=== PATIENT | female | born 1960 | race Caucasian/White ===

== ENCOUNTER 2023-12-11 09:53 | Emergency (ER) | payer MEDICARE, OTHER, SELFPAY ==
[2023-12-11 10:05] VITALS: BP 155/86
--- NOTE | 2023-12-11 10:33 | ED.GENMED ---
History of Present Illness
General
Chief Complaint: Extremity Pain (non-traumatic)
Source: patient
Exam Limitations: none
Time Seen by Provider: 12/11/23 10:26
History of Present Illness
History of Present Illness:
Patient was awoken this morning by sudden pain behind her right knee. She points to her distal posterior thigh right above the popliteal area. She felt there was a knot there for a while. Pain has significantly improved. No calf pain. No chest
pain or shortness of breath. No fever. She had a total knee replacement done 4 weeks ago without issues.
Past History
Past History
ED Past Medical History: HTN, Hypercholesterolemia and NIDDM
ED Past Surgical History: Appendectomy, Cholecystectomy, Gynecological and Orthopedic
Review of Systems
Review of Systems
All Other Systems: Not applicable
Constitutional: Denies fever or chills
Respiratory: Reports no symptoms
Cardiac: Reports no symptoms
Phy Exam
Physical Exam
Physical Exam:
GENERAL: Alert and oriented in no apparent distress
EYE: Orbits normal.
CARDIAC: Regular rate and rhythm without any obvious murmurs.
LUNGS: Clear breath sounds,normal
NEUROLOGICAL: Alert and oriented , grossly non-focal
SKIN: Warm and dry, no rash or lesion, no discoloration, skin intact.
MUSCULOSKELETAL: No edema,no deformity.Good color. Well-healing vertical incision right knee. No calf tenderness. No cord. Good distal pulses and color. Mild tenderness right posterior thigh at the distal tendon. No thigh swelling.
PSYCH: Normal and appropriate interaction.
Course
Orders/Labs/Results
Orders:
Orders
12/11/23 10:31
Knee, Right 4 or More Views [CR Knee- Right 4 Or More View*] Urgent
Comment:
Reason For Exam: Right knee pain. Recent total knee replacement
US Periph Venous LOWER Ext RT Urgent
Comment:
Reason For Exam: Right posterior knee pain
12/11/23 10:47
Basic Metabolic Panel Urgent
Complete Blood Count/With Diff Urgent
12/11/23 12:09
BMP [Basic Metabolic Panel] Urgent
12/11/23 15:00
Sterile Water For Inj [Sterile Water For Injection 1000 ml] 1,000 ml Sodium Bicarbonate 150 meq IV 250 mls/hr
12/11/23 15:21
Sodium Zirconium Cyclosilicate [Lokelma] 10 gram PO NOW STA
12/11/23 15:35
EKG [Electrocardiogram (*1)] Urgent
Reason for Study: Other
Other Reason for Exam: Hyperkalemia
EKG- Treatment ONCE
Abnormal Lab Results
12/11/23 12/11/23
10:47 12:09
RBC 3.57 L 10^6/uL
(4.20-5.40)
Hgb 11.4 L g/dL
(12.0-16.0)
Hct 33.9 L %
(37.0-47.0)
MCH 31.9 H pg
(27.0-31.0)
Plt Count 429 H 10^3/uL
(130-400)
Potassium 5.6 H mmol/L 5.7 H mmol/L
(3.5-5.1) (3.5-5.1)
Chloride 112 H mmol/L 110 H mmol/L
(98-107) (98-107)
Carbon Dioxide 14 L* mmol/L 15 L mmol/L
(22-30) (22-30)
BUN 37 H mg/dl 37 H mg/dl
(7-17) (7-17)
Creatinine 1.6 H mg/dL 1.6 H mg/dL
(0.6-1.0) (0.6-1.0)
Glucose 138 H mg/dl 125 H mg/dl
(70-99) (70-99)
12/11/23 10:47
12/11/23 12:09
Vital Signs
Initial and Last Documented VS:
Initial Vital Signs
Temp Pulse Resp BP Pulse Ox
97.3 F 104 16 155/86 99
12/11/23 10:05 12/11/23 10:05 12/11/23 10:05 12/11/23 10:05 12/11/23 10:05
Last Documented Vital Signs
Temp Pulse Resp BP Pulse Ox
97.3 F 85 20 122/79 100
12/11/23 10:05 12/11/23 20:00 12/11/23 20:00 12/11/23 20:00 12/11/23 20:00
MDM/Problems Addressed
Differential Diagnosis Includes:
Sudden posterior popliteal leg pain. Rule out DVT. Possibly muscle spasm. With recurrent episodes we will also check electrolytes.
*Radiology
Radiology exam reviewed: radiology read reviewed (Negative leg x-ray. Negative ultrasound)
*Pulse Oximetry
Patient hypoxic: no
*Critical Care Note
Total Time (30-74mins, 75-104mins- exclusive of procedures): Not Applicable
Update Note
Update Note:
Discussed with nephrology. Mild increased renal insufficiency. Mild acidosis. Mild elevated potassium. Recommend a dose of Lokelma, bicarb 3 Amps in water over 4 hours. Also hold losartan, metformin, spironolactone and Celebrex. Can continue
Januvia. Add Procardia XL and follow-up early next week with repeat testing through her primary
ED Attending Note
-
Portions of this chart may have been created with voice recognition software.� Occasional wrong word or��sound alike� substitutions may have occurred due to the inherent limitations of voice recognition software.
Discharge Plan
Departure
Patient Disposition: Home (Routine Discharge)
Date of Disposition: 12/11/23
Time of Disposition: 15:21
Patient with high blood pressure during this ER visit?: Yes
Discharge Problem:
Transient right posterior leg pain, Recent total knee replaced, Renal insufficiency, Metabolic acidosis, Hyperkalemia
Instructions: Hyperkalemia, BLOOD PRESSURE
Prescriptions:
New
nifedipine [Procardia XL] 30 mg tablet extended release 24hr
30 mg PO DAILY Qty: 30 0RF
No Action
atorvastatin [Lipitor] 10 mg Tablet
10 mg PO DAILY
phentermine 15 mg Capsule
15 mg PO DAILY
cyanocobalamin (vitamin B-12) 1,000 mcg Tablet
1,000 mcg PO DAILY
Theragen Tablet
1 tab PO DAILY
aspirin 81 mg Tablet,Delayed Release (Dr/Ec)
81 mg PO BID
levothyroxine [Synthroid] 100 mcg Tablet
100 mcg PO DAILY
losartan 25 mg Tablet
25 mg PO DAILY
celecoxib [Celebrex] 100 mg Capsule
100 mg PO BID
metformin 500 mg Tablet Extended Release 24 Hr
500 mg PO TID
spironolactone 50 mg Tablet
50 mg PO TID
Januvia 50 mg Tablet
50 mg PO DAILY
calcium carbonate-vitamin D3 [Calcium 500 + D] 500 mg-10 mcg (400 unit) Tablet
1 tab PO DAILY
Referrals:
Elin Fry, DO [Family Provider] - Follow up in 2-3 days
Activity Restrictions/Additional Instructions:
Stop your metformin, Celebrex, losartan, spironolactone for now.
Add Procardia
Follow-up with your physician early next week for repeat evaluation and repeat blood testing
Return sooner with increased leg pain swelling redness chest pain shortness of breath or any other concerning symptoms
Interventions
Interventions:
*Risk Screen - Suicide Last Done: 12/11/23 10:56
*General Assessment Last Done: 12/11/23 10:56
*Neglect/Abuse Screening Last Done: 12/11/23 10:56
*Nursing Disposition Last Done: 12/11/23 20:42
ED-Skin Assessment Last Done: 12/11/23 10:56
ED-Peripheral Vascular Assessment Last Done: 12/11/23 10:56
ED-Musculoskeletal Assessment Last Done: 12/11/23 10:56
Discharge Date and Time
Discharge Date/Time: 12/11/23 20:42
Print Language: SAMI
[2023-12-11 10:56] VITALS: BMI 33.4
[2023-12-11 11:03] LABS: % Basophils 0.9 % (0-2); % Eosinophils 1.6 % (0-6); % Immature Granulocytes 0.3 % (0-0.5); % Lymphocytes 24.4 % (20.5-51.1); % Neutrophils 64.8 % (42.2-75.2); Absolute Basophils 0.1 10^3/uL (0-0.2); Absolute Eosinophils 0.1 10^3/uL (0-0.7); Absolute Lymphocytes 1.7 10^3/uL (1.2-3.4); Absolute Monocytes 0.5 10^3/uL (0.1-0.6); Absolute Neutrophils 4.4 10^3/uL (1.4-6.5); Hematocrit 33.9 % (37.0-47.0); Hemoglobin 11.4 g/dL (12.0-16.0); Mean Corp Hgb Conc. 33.6 g/dL (33.0-37.0); Mean Corpuscular Hgb 31.9 pg (27.0-31.0); Mean Platelet Volume 9.2 fL (7.4-10.4); Nucleated Red Blood Cells % 0 %; Platelet Count 429 10^3/uL (130-400); Red Blood Cell Count 3.57 10^6/uL (4.20-5.40); White Blood Cell Count 6.8 10^3/uL (4.8-10.8)
[2023-12-11 11:15] LABS: Blood Urea Nitrogen 37 mg/dl (7-17); Calcium 9.8 mg/dl (8.4-10.2); Carbon Dioxide 14 mmol/L (22-30); Chloride 112 mmol/L (98-107); Estimated Creatinine Clearance 33 ml/min; Glucose 138 mg/dl (70-99); Potassium 5.6 mmol/L (3.5-5.1); Sodium 136 mmol/L (135-145); eGFR 35.79
[2023-12-11 12:00] VITALS: BP 124/80
[2023-12-11 12:42] LABS: Blood Urea Nitrogen 37 mg/dl (7-17); Calcium 9.8 mg/dl (8.4-10.2); Carbon Dioxide 15 mmol/L (22-30); Chloride 110 mmol/L (98-107); Estimated Creatinine Clearance 33 ml/min; Glucose 125 mg/dl (70-99); Potassium 5.7 mmol/L (3.5-5.1); Sodium 135 mmol/L (135-145); eGFR 35.79
[2023-12-11 14:00] VITALS: BP 124/88
[2023-12-11] MEDS: SODIUM BICARBONATE 1150 MEQ IV (15:33)
[2023-12-11 15:37] VITALS: BP 102/73
[2023-12-11] MEDS: LOKELMA 10 GRAM PO (15:43)
[2023-12-11 18:00] VITALS: BP 131/75
[2023-12-11 20:00] VITALS: BP 122/79
== END 2023-12-11 20:42 | disposition home or self-care (01) ==
LOC: EMR 09:53
PROVIDERS: EMERGENCY PHYSICIAN Emergency Medicine; FAMILY PHYSICIAN Family Medicine
DX: M79.604 Pain in right leg (principal); M25.561 Pain in right knee; N28.9 Disorder of kidney and ureter, unspecified; E87.20 Acidosis, unspecified; E87.5 Hyperkalemia; I10 Essential (primary) hypertension; E11.9 Type 2 diabetes mellitus without complications; E78.00 Pure hypercholesterolemia, unspecified; Z90.49 Acquired absence of other specified parts of digestive tract; Z96.651 Presence of right artificial knee joint; Z98.890 Other specified postprocedural states; Z88.5 Allergy status to narcotic agent; Z91.010 Allergy to peanuts; Z88.8 Allergy status to other drugs, medicaments and biological substances; Z91.048 Other nonmedicinal substance allergy status; Z79.82 Long term (current) use of aspirin; Z79.84 Long term (current) use of oral hypoglycemic drugs
CPT/HCPCS: 99284; 96374; 73564; 80048; 85025; 93005; 93971